=== PATIENT | male | born 1980 | race Caucasian/White ===

== ENCOUNTER 2016-10-09 17:35 | Emergency (ER) | payer BC, OTHER ==
[~2016-10-09] VITALS: Ht 177.8 cm; Wt 78.7 kg
[2016-10-09 20:48] LABS: BASO % 0.4 % (0.0-1.0); EOS # 0.2 K/mm3 (0.0-0.50); EOS % 2.8 % (0.0-3.0); LARGE UNSTAINED CELL # 0.2 K/mm3 (0.0-0.4); LARGE UNSTAINED CELL % 2.4 % (0.0-4.0); LYMPH # 2.3 K/mm3 (1.5-4.5); LYMPH % 34.1 % (24.0-44.0); MEAN CORPUSCULAR HEMOGLOBIN 31.7 pg (27.0-33.0); MEAN CORPUSCULAR HGB CONC 34.9 g/dl (32.0-36.5); MONO # 0.4 K/mm3 (0.0-0.8); MONO % 5.7 % (0.0-5.0); NEUTROPHILS # 3.5 K/mm3 (1.8-7.7); NEUTROPHILS % 54.6 % (36.0-66.0); PLATELET COUNT, AUTOMATED 251 k/mm3 (150-450); RED CELL DISTRIBUTION WIDTH 12.6 % (11.5-14.5); WHITE BLOOD COUNT 6.4 K/mm3 (4.0-10.0)
[2016-10-09 20:59] LABS: ALBUMIN 3.7 GM/DL (3.2-5.2); ALKALINE PHOSPHATASE 76 U/L (45-117); ALT/SGPT 26 U/L (12-78); AMYLASE 46 U/L (25-115); ANION GAP 2 MEQ/L (8-16); AST/SGOT 17 U/L (15-37); BILIRUBIN,DIRECT < 0.1 MG/DL (0.0-0.2); BILIRUBIN,TOTAL 0.4 MG/DL (0.2-1.0); BLOOD UREA NITROGEN 16 MG/DL (7-18); CALCIUM LEVEL 8.2 MG/DL (8.5-10.1); CARBON DIOXIDE LEVEL 28 MEQ/L (21-32); CHLORIDE LEVEL 106 MEQ/L (98-107); GLOMERULAR FILTRATION RATE > 60.0 (>60); GLUCOSE, FASTING 85 MG/DL (70-105); POTASSIUM SERUM 3.7 MEQ/L (3.5-5.1); SODIUM LEVEL 136 MEQ/L (136-145); TOTAL PROTEIN 7.4 GM/DL (6.4-8.2)
--- NOTE | 2016-10-09 21:20 | REPUSA ---
CLINICAL HISTORY: Right upper quadrant pain. TECHNIQUE: Realtime sonographic images were obtained in multiple projections. Color Doppler images we re obtained. COMMENTS: The liver is of uniform echo texture without evidence of mass or defect. There is no intra or extrahe patic biliary ductal dilatation. The common bile duct measures 1.9 mm. The gallbladder is physiologic ally distended without evidence of calculi. The gallbladder wall is not thickened measuring 1.1 mm an d there is no pericholecystic fluid. There is no abdominal ascites. The visualized portions of the pancreas are unremarkable. The right kidney measures 11.3 x 5.6 x 4.1 cm with multiple linear echogenic foci, most compatible with small nonobstructing stones. Color Doppler images demonstrate no abnormal vascularity. IMPRESSION: Right renal nonobstructing stones. Consider confirmation with CT. Thank you for your kind referral of this patient. We appreciate the opportunity to participate in thi s patient's care.
[2016-10-09] MEDS ORDERED: ZOFR4TAB3 PO (22:08)
[2016-10-09] MEDS ORDERED: PRIL20CA9 PO (22:08)
[2016-10-09 22:15] VITALS: BP 120/72
== END 2016-10-09 22:28 | disposition home or self-care (01) ==
LOC: M ED 17:35
DX: N20.0 Calculus of kidney (principal); F17.210 Nicotine dependence, cigarettes, uncomplicated

== ENCOUNTER → 2016-12-12 | Outpatient (CLI) | payer BC ==
[~2016-12-12] MED LIST: PRIL20CA9 PO; ZOFR4TAB3 PO
== END ==
LOC: M OUTALCOH 07:56
PROVIDERS: ATTEND Psychiatry & Neurology Psychiatry
DX: F10.20 Alcohol dependence, uncomplicated (principal)

== ENCOUNTER 2016-12-25 16:00 | Outpatient (RCR) | payer BC | END 2016-12-28 | LOC: M OUTALCOH 16:00 | PROVIDERS: ATTEND Psychiatry & Neurology Psychiatry | DX: F10.20 Alcohol dependence, uncomplicated (principal); F17.200 Nicotine dependence, unspecified, uncomplicated ==

== ENCOUNTER → 2017-02-27 | Outpatient (RCR) | payer BC | LOC: M OUTALCOH 01-29 16:00 | PROVIDERS: ATTEND Psychiatry & Neurology Psychiatry | DX: F10.20 Alcohol dependence, uncomplicated (principal); F17.200 Nicotine dependence, unspecified, uncomplicated ==

== ENCOUNTER 2017-03-03 16:00 | Outpatient (RCR) | payer BC | END 2017-03-30 | LOC: M OUTALCOH 03-10 16:00 | DX: F10.20 Alcohol dependence, uncomplicated (principal); F17.200 Nicotine dependence, unspecified, uncomplicated ==

== ENCOUNTER 2017-04-09 16:00 | Outpatient (RCR) | payer BC | END 2017-04-30 | LOC: M OUTALCOH 04-14 16:00 | DX: F10.20 Alcohol dependence, uncomplicated (principal); F17.200 Nicotine dependence, unspecified, uncomplicated ==

== ENCOUNTER 2017-05-07 16:00 | Outpatient (RCR) | payer BC | END 2017-05-28 | LOC: M OUTALCOH 05-12 16:00 | DX: F10.20 Alcohol dependence, uncomplicated (principal); F17.200 Nicotine dependence, unspecified, uncomplicated ==

== ENCOUNTER 2017-06-10 09:15 | Outpatient (RCR) | payer BC | END 2017-06-28 | LOC: M OUTALCOH 09:15 | DX: F10.20 Alcohol dependence, uncomplicated (principal); F17.200 Nicotine dependence, unspecified, uncomplicated ==

== ENCOUNTER 2017-07-02 16:37 | Outpatient (RCR) | payer BC | END 2017-07-28 | LOC: M OUTALCOH 07-09 15:00 | DX: F10.20 Alcohol dependence, uncomplicated (principal); F17.200 Nicotine dependence, unspecified, uncomplicated ==

== ENCOUNTER 2017-07-30 08:57 | Outpatient (RCR) | payer BC | END 2017-08-28 | LOC: M OUTALCOH 08-06 15:00 | DX: F10.20 Alcohol dependence, uncomplicated (principal); F17.200 Nicotine dependence, unspecified, uncomplicated ==

== ENCOUNTER 2019-04-14 01:37 | Emergency (ER) | payer BC ==
[~2019-04-14] VITALS: Ht 177.8 cm; Wt 81.8 kg
[~2019-04-14 01:37] MED LIST changes: +ZOFR4TAB14 PO; -ZOFR4TAB3 PO
[2019-04-14] MEDS ORDERED: ONDANSETRON 4MG/2ML VIAL (J2405) IV ONE (02:30)
[2019-04-14] MEDS ORDERED: LORazepam 2 MG/ML VIAL (J2060) IV ONE (02:30)
[2019-04-14] MEDS ORDERED: MORPHINE 4 MG/ML 1ML VIAL/SYRINGE (J2270) IV ONE (02:30)
[2019-04-14] MEDS ORDERED: KETOROLAC 30 MG/ML VIAL (J1885) IV ONE (02:30)
[2019-04-14] MEDS ORDERED: PROAAER10 INH (04:20)
[2019-04-14] MEDS ORDERED: CYCL5TAB PO (04:23)
[2019-04-14] MEDS ORDERED: NORC1TAB7 PO (04:23)
[2019-04-14] MEDS ORDERED: NAPR-837 PO (04:23)
[2019-04-14 04:29] VITALS: BP 129/68
== END 2019-04-14 04:31 | disposition home or self-care (01) ==
LOC: M ED 01:37
DX: M62.830 Muscle spasm of back (principal); M50.90 Cervical disc disorder, unspecified, unspecified cervical region; F10.10 Alcohol abuse, uncomplicated; F17.200 Nicotine dependence, unspecified, uncomplicated
CPT/HCPCS: 96374; 96375; 99284; J1885; J2060; J2270; J2405